=== PATIENT | female | born 1990 | race Caucasian/White ===

== ENCOUNTER 2020-11-21 16:41 | Emergency (ER) | payer OTHER, SELFPAY ==
[2020-11-21] VITALS (7 sets, daily range): BP systolic 125; BP diastolic 61; PULSE 62–75; RESP 12–33; TEMP 36.8; O2SAT 93–100
[2020-11-21] MEDS: EPINEPHrine HCL INJ 1 MG/ML AMPUL 0.3 MG IM (17:37)
[2020-11-21] MEDS: predniSONE 20 MG TABLET 60 MG PO (17:38)
--- NOTE | 2020-11-21 18:05 | ED.ALLEREA ---
HPI - Allergic Reaction General Chief complaint: Allergic Reaction Stated complaint: All React Time Seen by Provider: 11/21/20 16:57 Source: patient, EMS and RN notes reviewed Mode of arrival: EMS Limitations: no limitations History of Present Illness HPI narrative: Patient is 30 years old white female got stung by a wasp to the right wrist, developed swelling lips and tongue and unusual feeling in the throat, received 50 mg of Benadryl prior to arrival, currently feeling much better. Patient denies any shortness of breath. Related Data Allergies Allergy/AdvReac Type Severity Reaction Status Date / Time lavender (Lavandula Allergy Anaphylaxis Verified 11/21/20 17:00 angustifolia) peanut Allergy Anaphylaxis Verified 11/21/20 17:00 Penicillins Allergy Swelling Verified 11/21/20 17:00 pickles Allergy Swelling Uncoded 11/21/20 17:00 of Lip/Tongue/Throat wasps Allergy Swelling Uncoded 11/21/20 17:00 of Lip/Tongue/Throat Review of Systems Review of Systems: CONSTITUTIONAL: Denies fever, chills, or sweats. EYES: Denies visual changes, redness, or discharge. ENT: Denies rhinorrhea, congestion, sore throat, or otalgia. CARDIOVASCULAR: Denies chest pain, palpitations, or edema. RESPIRATORY: Denies cough or dyspnea. GASTROINTESTINAL: Denies abdominal pain, nausea, vomiting, or diarrhea. GENITOURINARY: Denies dysuria or hematuria. SKIN: Denies rash or itching. MUSCULOSKELETAL: Denies back pain, joint pain, or myalgia. NEUROLOGIC: Denies headache, numbness, or weakness. PSYCHIATRIC: Denies anxiety or depression. Exam Narrative: General appearance: Well-developed, well-nourished Skin: Normal color, local redness and swelling at the palmar side of the right wrist. Head: Normocephalic, nontraumatic Eyes: Clear conjunctiva ENT: Oropharynx normal, ears normal, nose normal Neck: Supple, nontender Chest and respiratory: Airway patent, no respiratory distress, no accessory muscle use Heart: Regular rate/rhythm Neurologic: Alert and oriented ?3, [employer] is normal as tested, no gross motor deficit Course Course Emergency Course: Improving Vital Signs Vital signs: Vital Signs Temperature 36.8 C 11/21/20 16:54 Pulse Rate 64 11/21/20 16:54 Respiratory Rate 16 11/21/20 16:54 Blood Pressure 125/61 11/21/20 16:54 Pulse Oximetry 99 11/21/20 16:54 Temperature 36.8 C 11/21/20 16:54 Pulse Rate 64 11/21/20 16:54 Respiratory Rate 16 11/21/20 16:54 Blood Pressure 125/61 11/21/20 16:54 Pulse Oximetry 99 11/21/20 16:54 MDM - Allergic Reaction MDM Narrative Medical decision making narrative: allergic reaction Patient received 50 mg of Benadryl IV, prednisone 60 mg and epinephrine 0.3 mg IM ordered Critical Care Time Critical Care Time Critical Care Time: No Discharge Plan Discharge Clinical Impression: Allergic reaction, Sting, wasp Patient Disposition: Home, Self-Care Condition: Improved Instructions: Antibiotic Form, Insect Bite or Sting (ED), Allergies (ED) Additional Instructions: Return if symptoms are worsening , call your family physician for appointment, take Tylenol as as needed for aches and pain, continue home medications. Prescriptions: New prednisone 20 mg tablet 40 mg PO DAILY 5 Days Qty: 10 RF: 0 Zyrtec 10 mg capsule 10 mg PO DAILY PRN (Reason: allergy symptoms) Qty: 10 RF: 0 Follow-up/Referrals: PHYSICIAN,COMMERCIAL [employer] SERVICE TECHNICIAN [Primary Care Provider] -
== END 2020-11-21 19:30 | disposition home or self-care (01) ==
PROVIDERS: Emergency Provider Emergency Medicine
DX: T63.461A Toxic effect of venom of wasps, accidental (unintentional), initial encounter (principal); R22.0 Localized swelling, mass and lump, head
CPT/HCPCS: 99283; J0171; J7512

== ENCOUNTER 2020-12-23 16:48 | Observation (INO) | payer OTHER, SELFPAY ==
--- NOTE | ~2020-12-23 | CT_ITS ---
EXAMINATION: CT abdomen pelvis w con DATE: 12/23/2020 23:09 INDICATION: Abdominal pain, nausea, vomiting and diarrhea suggested TECHNIQUE: Computed tomography (CT) of the abdomen and pelvis was performed with 100 cc Omnipaque 350 intravenous contrast. Automated exposure control and iterative reconstruction technique were employe d. Exam dose: 1264.94 mGy-cm total exam DLP. COMPARISON: None. FINDINGS: The lung bases are clear of infiltrate or consolidation. Normal heart size. No pericardial or pleural effusion. Status post cholecystectomy. The liver, bile ducts, spleen, pancreas, pancreatic duct, and adrenal glands and kidneys appear chantel l. No urinary tract calculus or hydroureteronephrosis. The urinary bladder is unremarkable. 3.7 cm left ovarian cyst. There is mild free fluid in the dependent lower abdomen and pelvis including right adnexal area. Very small sliding hiatal hernia. Normal appendix.. Normal caliber of the abdominal aorta no intraperitoneal or retroperitoneal or pelvic mass lesion or adenopathy or ascites is detected. There are numerous air-fluid levels of the small bowel, including jejunum as well as ileum. There is prominent continuous lengthy segmental thickening and enhancement of the wall of the ileum including particularly the distal and terminal ileum, which measures up to 3.4 cm diameter. Differential diagno sis includes Crohn's disease, tuberculosis or other infection. IMPRESSION: Continuous lengthy segmental thickening and enhancement of the wall of the ileum and dil atation of the distal and terminal ileum up to 3.4 cm, with multiple proximal small bowel air-fluid l evels. Mild free fluid in the lower abdomen and pelvis. Differential diagnosis includes Crohn's disea se, tuberculosis or other infection 3.7 cm left ovarian cyst Status post cholecystectomy Reviewed, dictated and finalized at [facility] Reviewed, dictated and finalized at [facility]. IMPRESSION: Continuous lengthy segmental thickening and enhancement of the wal l of the ileum and dilatation of the distal and terminal ileum up to 3.4 cm, wi th multiple proximal small bowel air-fluid levels. Mild free fluid in the lower abdomen and pelvis. Differential diagnosis includes Crohn's disease, tuberculo sis or other infection 3.7 cm left ovarian cyst Status post cholecystectomy
[2020-12-23 17:36] VITALS: BP 141/76; PULSE 84; RESP 22; TEMP 36.4; O2SAT 99
[2020-12-23 17:57] LABS: Basophils Percent Auto 0.5 % (0.2-1.2); Eosinophils Absolute Auto 0.2 K/mm3 (0-0.3); Eosinophils Percent Auto 1.7 % (0-4.4); Hematocrit 42.5 % (37.0-47.0); Hemoglobin 13.9 g/dL (12.0-15.0); Immature Granulocyte Absolute 0.04 K/mm3 (0.00-0.031); Immature Granulocyte Percent A 0.5 % (0-0.5); Lymphocytes Absolute Auto 1.25 K/mm3 (0.9-3.2); Lymphocytes Percent Auto 14.5 % (18.3-44.2); Mean Corpuscular HGB Conc 32.7 g/dl (32-36); Mean Corpuscular Hemoglobin 26.8 pg (26-34); Mean Platelet Volume 10.3 fl (7.4-10.4); Monocytes Absolute Auto 0.5 K/mm3 (0.1-0.6); Neutrophils Absolute Auto 6.6 K/mm3 (1.3-6.7); Neutrophils Percent Auto 76.8 % (45.5-73.1); Platelet Count Result 278 k/mm3 (150-375); Red Blood Count 5.18 M/mm3 (4.2-5.4); Red Cell Distribution Width 14.1 % (11.5-14.5); White Blood Count 8.6 K/mm3 (4.5-10.0)
[2020-12-23 18:06] LABS: Alanine Aminotransferase 22 U/L (4-35); Alkaline Phosphatase 84 U/L (38-126); Anion Gap 9 mmol/L (8-16); Aspartate Amino Transferase 23 U/L (14-36); Bilirubin,Total 0.5 mg/dL (0.2-1.3); Blood Urea Nitrogen 8 mg/dL (7-17); Calcium 8.9 mg/dL (8.4-10.2); Carbon Dioxide 26 mmol/L (22-30); Chloride 105 mmol/L (98-107); Estimated CRCL calculation 144 ml/min; Estimated Glomerular Filt Rate > 60; Glucose 98 mg/dL (65-110); Lipase 48 U/L (23-300); Potassium 3.9 mmol/L (3.4-5.0); Sodium 140 mmol/L (137-145)
[2020-12-23 18:42] LABS: Add Urine Microscopic? NO; Appearance Urine Clear (Clear); Bilirubin Urine Negative (Negative); Blood Urine Negative (Negative); Color Urine Yellow (Yellow); Glucose Urine UA Negative (Negative); Ketones Urine Negative (Negative); Leukocyte Esterase Ur Negative LEU/UL (Negative); Nitrate Urine Negative (Negative); Protein Urine Negative (Negative); Urobilinogen Urine Negative mg/dL (<2.0)
[2020-12-23 21:25] VITALS: BP 120/76; PULSE 70; RESP 18; O2SAT 99
--- NOTE | 2020-12-23 22:15 | ED.GENADULT ---
HPI - General Adult General Chief complaint: Abdominal Pain Stated complaint: abd pain Time Seen by Provider: 12/23/20 21:41 History of Present Illness HPI narrative: Patient 30-year-old female presents the emergency department with chief complaint of right upper quadrant pain patient pain began last night and reports that it radiates to her back. Patient states that she has had nausea and has had vomiting and is currently having dry heaves. Patient denies fever denies diarrhea reports that she has prior history of a cholecystectomy reports that the symptoms are not improved by anything nor they worsened by anything. Related Data Allergies Allergy/AdvReac Type Severity Reaction Status Date / Time lavender (Lavandula Allergy Anaphylaxis Verified 11/21/20 17:00 angustifolia) peanut Allergy Anaphylaxis Verified 11/21/20 17:00 Penicillins Allergy Swelling Verified 11/21/20 17:00 pickles Allergy Swelling Uncoded 11/21/20 17:00 of Lip/Tongue/Throat wasps Allergy Swelling Uncoded 11/21/20 17:00 of Lip/Tongue/Throat Review of Systems Review of Systems: A 10 system review of systems was completed on the patient and is negative except for what is stated in the HPI. Nursing and ancillary documentation was reviewed. Exam Narrative: GENERAL: Well-appearing, well-nourished, and in no acute distress. HEAD: Normocephalic, atraumatic. EYES: PERRLA and EOMI. ENT: Nares clear, no rhinorrhea or epistaxis. Mucous membranes moist. NECK: Supple. CHEST: Clear to auscultation. No respiratory distress. HEART: Regular rate and rhythm. No murmur heard. Normal peripheral pulses. ABDOMEN: Soft, tenderness to palpation in the epigastric region, nondistended, normal active bowel sounds. EXTREMITIES: Normal range of motion. No edema. SKIN: Warm, dry, no rash. NEURO: No focal deficits. Alert and oriented x3. PSYCH: Normal mood and affect. Course Vital Signs Vital signs: Vital Signs Temperature 36.4 C L 12/23/20 17:36 Pulse Rate 84 12/23/20 17:36 Respiratory Rate 22 H 12/23/20 17:36 Blood Pressure 141/76 H 12/23/20 17:36 Pulse Oximetry 99 12/23/20 17:36 Temperature 36.4 C L 12/23/20 17:36 Pulse Rate 70 12/23/20 21:25 Respiratory Rate 18 12/23/20 21:25 Blood Pressure 120/76 12/23/20 21:25 Pulse Oximetry 99 12/23/20 21:25 Medical Decision Making Vital Signs Vital Signs: Vital Signs Temperature 36.4 C L 12/23/20 17:36 Pulse Rate 84 12/23/20 17:36 Respiratory Rate 22 H 12/23/20 17:36 Blood Pressure 141/76 H 12/23/20 17:36 Pulse Oximetry 99 12/23/20 17:36 Temperature 36.4 C L 12/23/20 17:36 Pulse Rate 70 12/23/20 21:25 Respiratory Rate 18 12/23/20 21:25 Blood Pressure 120/76 12/23/20 21:25 Pulse Oximetry 99 12/23/20 21:25 Lab Data Result diagrams: 12/23/20 17:48 12/23/20 17:48 Labs: Lab Results 12/23/20 12/23/20 12/23/20 Range/Units 17:48 17:48 18:26 WBC 8.6 (4.5-10.0) K/mm3 RBC 5.18 (4.2-5.4) M/mm3 Hgb 13.9 (12.0-15.0) g/dL Hct 42.5 (37.0-47.0) % MCV 82.0 (80-100) fl MCH 26.8 (26-34) pg MCHC 32.7 (32-36) g/dl RDW 14.1 (11.5-14.5) % Plt Count 278 (150-375) k/mm3 MPV 10.3 (7.4-10.4) fl Immature Gran % (Auto) 0.5 (0-0.5) % Neut % (Auto) 76.8 H (45.5-73.1) % Lymph % (Auto) 14.5 L (18.3-44.2) % [place] % (Auto) 6.0 (2.6-8.5) % Eos % (Auto) 1.7 (0-4.4) % Baso % (Auto) 0.5 (0.2-1.2) % Lymph # (Auto) 1.25 (0.9-3.2) K/mm3 [place] # (Auto) 0.5 (0.1-0.6) K/mm3 Eos # (Auto) 0.2 (0-0.3) K/mm3 Baso # (Auto) 0.0 (0.0-0.1) K/mm3 Abs Immat Gran (auto) 0.04 H (0.00-0.031) K/mm3 Absolute Neuts (auto) 6.6 (1.3-6.7) K/mm3 Absolute Nucleated RBC 0.0 (0.0-0.012) K/mm3 Nucleated RBC % 0.0 (0.0-0.2) % Sodium 140 (137-145) mmol/L Potassium 3.9 (3.4-5.0) mmol/L Chloride 105 (98-107) mmol/L Carbon
[2020-12-23] MEDS: ONDANSETRON INJ 4 MG/2 ML VIAL IV PUSH (22:47)
[2020-12-23] MEDS: PANTOPRAZOLE SODIUM IV 40 MG VIAL IV PUSH (22:47)
[2020-12-23] MEDS: MORPHINE SULFATE (*CRX) 4 MG/ML INJ IV PUSH (22:47)
[2020-12-23] MEDS: SODIUM CHLORIDE 0.9% IV 1,000 ML 999 ML IV CONT (22:52)
[2020-12-24] VITALS (8 sets, daily range): BP systolic 99–139; BP diastolic 49–69; PULSE 70–77; RESP 16–20; TEMP 36.1–37; O2SAT 98–100; BMI 39.1
--- NOTE | 2020-12-24 01:41 | ADMGEN ---
This patient, Jaylyn Gale, was admitted to 2 Medical Room 261-01. Patient/family oriented to hospital policies and general routines including ID bracelet, bed and alarms, visiting hours, pain management, procedures, bathroom and other care routines, personal items, smoking policy, room service/diet, and visiting hours. Information on how to activate the Rapid Response Team has been discussed. Patient/Family are encouraged to report perceived risks to care and to ask questions if they do not understand what they are told or what they should do.
[2020-12-24] MEDS: SODIUM CHLORIDE 0.9% IV 1,000 ML 125 ML IV CONT ×3 (02:12→23:41)
[2020-12-24] MEDS: metroNIDAZOLE 500 MG/ISO 100ML 500 MG/100 ML BAG 100 MG IVPB ×5 (02:13→23:41)
[2020-12-24] MEDS: ONDANSETRON INJ 4 MG/2 ML VIAL IV PUSH ×5 (02:55→21:17)
[2020-12-24] MEDS: MORPHINE SULFATE (*CRX) 2 MG/ML INJ 1 MG IV PUSH (05:39)
--- NOTE | 2020-12-24 08:01 | PM.IMHP ---
H&P: HPI History of Present Illness Date/Time: 12/24/20 08:01 Chief Complaint: Abdominal pain, nausea, vomiting Narrative: Patient is a 30-year-old female, presenting with an episode of crampy abdominal pain and nausea and vomiting. She has had these episodes at various points over the last 10 years, she begins to feel severe abdominal pain that is described as stabbing or pinching, associated with some nausea, and watery emesis. There is no significant constipation or diarrhea. There are no hematochezia or melena. There are no fever or chills. About 5 years ago, she was told that she may have Crohn's disease based on CT findings. However earlier this year at another facility, she underwent a colonoscopy, after which she was told that she does not have Crohn's disease. Nothing makes the pain better or worse. It is not related to food or exertion. Past medical history: No significant chronic medical problems Allergies: As documented, penicillin causes anaphylaxis, she also has allergies to Lavender and wasps Medications: None daily Family history: Not aware of any major medical problems running in her family Social history: Denies any significant drug or alcohol use other than marijuana; no cigarettes Surgeries: Laparoscopic cholecystectomy about 2011, and 2 vaginal births ER course: Vital signs: Afebrile, hemodynamically stable, no tachypnea Labs: No leukocytosis, no anemia, no kidney injury, no significant electrolyte abnormalities Urinalysis: No urinary tract infection evidence, negative test CT the abdomen and pelvis showing no calculus in the urinary tract, and a normal liver, spleen, pancreas, biliary system, and kidneys; they did identify a 3.7 cm left ovarian cyst, a small sliding hiatal hernia, lengthy segmental thickening of the ileum, consistent with some sort of inflammatory process Review of Systems Review of Systems: All systems reviewed & are unremarkable except as noted in HPI and below [facility] Family History Family History (Updated 12/24/20 @ 01:58 by Loraine Figueroa RN) Father Diabetes mellitus Grandparent Cancer Social History Social History Smoking status: Never smoker Alcohol intake: current Substance use: current Substance use type: marijuana Last use: 12/23/20 Spiritual care concerns: No Meds Home Medications and Allergies Home Medications Medication Instructions Recorded Confirmed Type albuterol sulfate 2 puff INHALATION Q4H PRN 12/24/20 12/24/20 History Allergies Allergy/AdvReac Type Severity Reaction Status Date / Time lavender (Lavandula Allergy Anaphylaxis Verified 11/21/20 17:00 angustifolia) peanut Allergy Anaphylaxis Verified 11/21/20 17:00 Penicillins Allergy Swelling Verified 11/21/20 17:00 pickles Allergy Swelling Uncoded 11/21/20 17:00 of Lip/Tongue/Throat wasps Allergy Swelling Uncoded 11/21/20 17:00 of Lip/Tongue/Throat Vital Signs Vital Signs - 24 hr 12/23/20 17:36 12/23/20 21:25 12/24/20 00:07 Temperature 97.5 F L Pulse Rate 84 70 73 Respiratory Rate 22 H 18 18 Blood Pressure 141/76 H 120/76 105/68 Pulse Oximetry 99 99 99 12/24/20 01:49 12/24/20 04:41 Temperature 98.5 F 98.6 F Pulse Rate 70 77 Respiratory Rate 20 20 Blood Pressure 99/49 L 112/50 L Pulse Oximetry 99 98 Exam Const: General: in distress Neck: Neck: no JVD Resp: Effort & Inspection: normal respiratory effort Auscultation: clear to auscultation bilaterally Cardio: Rate: regular rate Rhythm: regular rhythm GI: GI Palp: Yes Soft to palpation and Yes Tenderness to palpation present (GI) Other: tender to palpation lower abdomen H&P: Results Labs Labs: Short CBC 12/23/20 Range/Units 17:48 WBC 8.6 (4.5-10.0) K/mm3 Hgb 13.9 (12.0-15.0) g/dL Hct 42.5 (37.0-47.0) % Plt Count 278 (150-375) k/mm3 [facility] 12/23/20 17:48 Sod
[2020-12-24] MEDS: ACETAMINOPHEN 325 MG TABLET 650 MG PO (13:28)
--- NOTE | 2020-12-24 15:27 | ECG_ITS ---
Measurements Intervals [place] Rate: 69 P: 64 MO: 161 QRS: 61 QRSD: 101 T: 64 QT: 406 QTc: 438 Interpretive Statements SINUS RHYTHM BORDERLINE T WAVE ABNORMALITY- ANTERIOR LEADS BORDERLINE ECG Electronically Signed On 12-24-2020 16:47:33 CDT by Cortes Canchola D.O.
[2020-12-24 16:41] LABS: CRP 1.4 mg/dL (<1.0)
[2020-12-24 17:45] LABS: Erythrocyte Sedimentation Rate 19 mm/hr (0-20)
[2020-12-24 17:53] LABS: Hepatitis B Surface Antigen Negative (Negative)
[2020-12-24 17:59] LABS: HAV RESULT Negative (Negative); Hepatitis B Core IgM Result Negative (Negative)
[2020-12-24 18:11] LABS: Hepatitis C Virus Antibody Negative (Negative)
[2020-12-24] MEDS: PANTOPRAZOLE 40 MG TABLET PO (19:55)
[2020-12-24] MEDS: HYDROcodone/acetaminophen (*CRX) 5-325 MG TABLET 1 TAB PO (19:58)
[2020-12-25] MEDS: HYDROcodone/acetaminophen (*CRX) 5-325 MG TABLET 1 TAB PO ×3 (05:19→18:51)
[2020-12-25] MEDS: ONDANSETRON INJ 4 MG/2 ML VIAL IV PUSH ×3 (05:19→18:51)
[2020-12-25] MEDS: metroNIDAZOLE 500 MG/ISO 100ML 500 MG/100 ML BAG 100 MG IVPB ×3 (05:22→17:31)
[2020-12-25 05:43] LABS: Basophils Percent Auto 0.4 % (0.2-1.2); Eosinophils Absolute Auto 0.2 K/mm3 (0-0.3); Eosinophils Percent Auto 3.6 % (0-4.4); Hematocrit 35.5 % (37.0-47.0); Hemoglobin 11.6 g/dL (12.0-15.0); Immature Granulocyte Absolute 0.02 K/mm3 (0.00-0.031); Immature Granulocyte Percent A 0.4 % (0-0.5); Lymphocytes Percent Auto 26.3 % (18.3-44.2); Mean Corpuscular HGB Conc 32.7 g/dl (32-36); Mean Corpuscular Hemoglobin 26.5 pg (26-34); Mean Corpuscular Volume 81.2 fl (80-100); Mean Platelet Volume 10.2 fl (7.4-10.4); Monocytes Absolute Auto 0.4 K/mm3 (0.1-0.6); Monocytes Percent Auto 7.7 % (2.6-8.5); Neutrophils Absolute Auto 3.3 K/mm3 (1.3-6.7); Neutrophils Percent Auto 61.6 % (45.5-73.1); Platelet Count Result 225 k/mm3 (150-375); Red Blood Count 4.37 M/mm3 (4.2-5.4); Red Cell Distribution Width 13.9 % (11.5-14.5); White Blood Count 5.3 K/mm3 (4.5-10.0)
[2020-12-25 05:54] VITALS: BP 144/71; PULSE 64; RESP 16; TEMP 36.3; O2SAT 95
[2020-12-25 05:57] LABS: Alanine Aminotransferase 16 U/L (4-35); Albumin Level 3.2 g/dL (3.5-5.1); Alkaline Phosphatase 74 U/L (38-126); Anion Gap 4 mmol/L (8-16); Aspartate Amino Transferase 19 U/L (14-36); Bilirubin,Total 0.4 mg/dL (0.2-1.3); Blood Urea Nitrogen 7 mg/dL (7-17); Calcium 8.4 mg/dL (8.4-10.2); Carbon Dioxide 27 mmol/L (22-30); Chloride 109 mmol/L (98-107); Estimated CRCL calculation 127 ml/min; Estimated Glomerular Filt Rate > 60; Glucose 91 mg/dL (65-110); Phosphorus 3.1 mg/dL (2.5-4.5); Potassium 3.6 mmol/L (3.4-5.0); Sodium 140 mmol/L (137-145)
--- NOTE | 2020-12-25 08:15 | PM.IMPN ---
Progress Note: A&P Assessment and Plan (1) Vomiting: Code(s): R11.10 - Vomiting, unspecified Status: Acute Assessment and Plan: Zofran after QTC on EKG insure that is safe - 438 May be related to pain, may be related to gastritis, may be related to gastroenteritis IV fluid hydration, and clear liquid diet No electrolyte abnormalities or alkalosis at the moment, will trend labs (2) Abdominal pain: Code(s): R10.9 - Unspecified abdominal pain Status: Acute Assessment and Plan: Does not have appendicitis, pancreatitis, biliary disease, significant renal disease, or ectopic . Also does not have hepatitis. ESR normal, mild elevation of crp to 1.4, though nonspecific. She was told 5 years ago that she has Crohn's based on a CT. However of note, a colonoscopy done earlier this year, showed that she did not have Crohn's related changes. Possible explanations at this point include gastritis, we will treat empirically with IV Protonix, and gastroenteritis which we are treating with supportive care. If not resolving, and no etiology identified, may require GI consultation. Additional Plan hepatitis panel negative, esr normal, and crp only slightly elevated 1.4 pain somewhat improving with protonix - s/x maybe related to gastritis continue prn for the moment to be safe, we will also obtain celiac studies GI consult inpt vs d/c & outpt f/up based on symptoms Time Spent With Patient Time with patient: less than 15 minutes Subjective Date/time seen: 12/25/20 08:15 doing well, resting comfortably in bed Review of Systems Review of Systems: All systems reviewed & are unremarkable except as noted in HPI and below Exam Const: General: no acute distress Neck: Neck: no JVD Resp: Effort & Inspection: normal respiratory effort Auscultation: clear to auscultation bilaterally Cardio: Rate: regular rate Rhythm: regular rhythm GI: GI Palp: Yes Soft to palpation and No Tenderness to palpation present (GI) Objective Data Vital Signs Vital Signs: Vital Signs - 24 hr 12/24/20 08:32 12/24/20 10:31 12/24/20 14:00 Temperature 98.4 F Pulse Rate 71 Respiratory Rate 20 18 Blood Pressure 127/69 Pulse Oximetry 98 98 100 12/24/20 20:00 12/24/20 21:26 12/25/20 05:54 Temperature 97.0 F L 97.4 F L Pulse Rate 70 64 Respiratory Rate 16 16 Blood Pressure 139/67 144/71 H Pulse Oximetry 100 100 95 Intake/Output Intake/Output: Intake & Output 12/22/20 12/23/20 12/24/20 12/25/20 23:59 23:59 23:59 23:59 Intake Total 3850 540 Output Total 1800 250 Balance 2050 290 Meds/Results Medications: Active Medications Generic Name Dose Route Start Last Admin Trade Name Freq PRN Reason Stop Dose Admin Acetaminophen 650 mg 12/24/20 12:35 12/24/20 13:28 Acetaminophen 325 Mg Tablet PO 650 mg Q4H PRN Administration Mild Pain (1-3) or Fever Hydrocodone Bitart/Acetaminophen 1 tab 12/24/20 15:33 12/25/20 05:19 Hydrocodone/Acetaminophen (*Crx) 5-325 Mg Tablet PO 1 tab Q4H PRN Administration Pain Rated 4-6 Sodium Chloride 1,000 mls @ 125 mls/hr 12/23/20 23:45 12/25/20 03:52 Normal Saline Iv IV CONT Not Given .Q8H DANIEL Levofloxacin/Dextrose 750 mg in 150 mls @ 100 mls/hr 12/25/20 22:00 Levaquin 750 Mg/D5w 150 Ml IVPB Q24H DANIEL Metronidazole 500 mg in 100 mls @ 100 mls/hr 12/24/20 07:00 12/25/20 06:22 Flagyl 500 Mg/Iso Soln 100 Ml IVPB Infused Q6HR DANIEL Infusion Ondansetron HCl 4 mg 12/23/20 23:59 12/25/20 05:19 Ondansetron Inj 4 Mg/2 Ml Vial IV PUSH 4 mg Q4H PRN Administration Nausea Pantoprazole Sodium 40 mg 12/24/20 21:00 12/24/20 19:55 Pantoprazole 40 Mg Tablet PO 40 mg Q12HR DANIEL Administration Radiology Results: ITS Impressions Abdomen/Pelvis CT 12/23/20 23:27 IMPRESSION: Continuous lengthy segmental thickening and enhancement of the wall of the ileum and dilatation o
[2020-12-25] MEDS: PANTOPRAZOLE 40 MG TABLET PO ×2 (08:43→20:22)
[2020-12-25] MEDS: SODIUM CHLORIDE 0.9% IV 1,000 ML 125 ML IV CONT ×2 (08:45→17:31)
[2020-12-25 14:30] VITALS: BP 116/52; PULSE 66; RESP 16; TEMP 36.4; O2SAT 100
[2020-12-25 16:21] LABS: Beta HCG Quantitative < 2.39 mIU/ML
[2020-12-25] MEDS: ACETAMINOPHEN 325 MG TABLET 650 MG PO (20:20)
[2020-12-25 22:00] VITALS: BP 118/73; PULSE 66; RESP 22; TEMP 36.2; O2SAT 100
[2020-12-26] MEDS: metroNIDAZOLE 500 MG/ISO 100ML 500 MG/100 ML BAG 100 MG IVPB ×2 (00:05→05:19)
[2020-12-26] MEDS: ONDANSETRON INJ 4 MG/2 ML VIAL IV PUSH ×3 (01:41→20:47)
[2020-12-26] MEDS: HYDROcodone/acetaminophen (*CRX) 5-325 MG TABLET 1 TAB PO ×3 (01:42→20:47)
[2020-12-26] MEDS: SODIUM CHLORIDE 0.9% IV 1,000 ML 125 ML IV CONT ×3 (01:44→20:44)
[2020-12-26 05:33] LABS: Basophils Percent Auto 0.3 % (0.2-1.2); Eosinophils Absolute Auto 0.1 K/mm3 (0-0.3); Eosinophils Percent Auto 0.8 % (0-4.4); Hematocrit 35.7 % (37.0-47.0); Hemoglobin 11.6 g/dL (12.0-15.0); Immature Granulocyte Absolute 0.01 K/mm3 (0.00-0.031); Immature Granulocyte Percent A 0.2 % (0-0.5); Lymphocytes Absolute Auto 0.99 K/mm3 (0.9-3.2); Lymphocytes Percent Auto 16.2 % (18.3-44.2); Mean Corpuscular HGB Conc 32.5 g/dl (32-36); Mean Corpuscular Hemoglobin 26.9 pg (26-34); Mean Corpuscular Volume 82.8 fl (80-100); Mean Platelet Volume 10.5 fl (7.4-10.4); Monocytes Absolute Auto 0.4 K/mm3 (0.1-0.6); Monocytes Percent Auto 6.2 % (2.6-8.5); Neutrophils Absolute Auto 4.7 K/mm3 (1.3-6.7); Neutrophils Percent Auto 76.3 % (45.5-73.1); Platelet Count Result 221 k/mm3 (150-375); Red Blood Count 4.31 M/mm3 (4.2-5.4); Red Cell Distribution Width 13.8 % (11.5-14.5); White Blood Count 6.1 K/mm3 (4.5-10.0)
[2020-12-26 05:53] LABS: Alanine Aminotransferase 15 U/L (4-35); Albumin Level 3.4 g/dL (3.5-5.1); Alkaline Phosphatase 69 U/L (38-126); Anion Gap 8 mmol/L (8-16); Aspartate Amino Transferase 19 U/L (14-36); Bilirubin,Total 0.2 mg/dL (0.2-1.3); Blood Urea Nitrogen 7 mg/dL (7-17); Calcium 8.1 mg/dL (8.4-10.2); Carbon Dioxide 24 mmol/L (22-30); Chloride 108 mmol/L (98-107); Estimated CRCL calculation 146 ml/min; Estimated Glomerular Filt Rate > 60; Glucose 93 mg/dL (65-110); Magnesium 1.9 mg/dL (1.6-2.3); Phosphorus 3.2 mg/dL (2.5-4.5); Potassium 3.7 mmol/L (3.4-5.0); Sodium 140 mmol/L (137-145)
[2020-12-26 06:00] VITALS: BP 119/58; PULSE 73; RESP 16; TEMP 36; O2SAT 99
--- NOTE | 2020-12-26 08:04 | PM.IMPN ---
Progress Note: A&P Assessment and Plan (1) Vomiting: Code(s): R11.10 - Vomiting, unspecified Status: Acute Assessment and Plan: Zofran after QTC on EKG insure that is safe - 438 May be related to pain, may be related to gastritis, may be related to gastroenteritis IV fluid hydration, and clear liquid diet No electrolyte abnormalities or alkalosis at the moment, will trend labs (2) Abdominal pain: Code(s): R10.9 - Unspecified abdominal pain Status: Acute Assessment and Plan: Does not have appendicitis, pancreatitis, biliary disease, significant renal disease, or ectopic . Also does not have hepatitis. ESR normal, mild elevation of crp to 1.4, though nonspecific. She was told 5 years ago that she has Crohn's based on a CT. However of note, a colonoscopy done earlier this year, showed that she did not have Crohn's related changes. Possible explanations at this point include gastritis, we will treat empirically with IV Protonix, and gastroenteritis which we are treating with supportive care. If not resolving, and no etiology identified, may require GI consultation. Additional Plan Few days of abdominal pain, nausea, and watery emesis r/o pancreatitis, biliary disease, appendicitis, hepatitis, ectopic or renal disease, pending Celiac w/up. Some concern for Crohn's based on CT, however ESR normal & CRP only 1.4 - which is lower than would be expected with Crohn's. Furthermore, pt has had colonoscopy after which she was told she does not have Crohn's Remaining possibilites include gastritis, gastroenteritis, IBS. Supportive care for these right now. Discharge later today or tomorrow morning based on symptom resolution Time Spent With Patient Time with patient: less than 15 minutes Subjective Date/time seen: 12/26/20 08:04 gi symptoms improving Review of Systems Review of Systems: All systems reviewed & are unremarkable except as noted in HPI and below Exam Const: General: no acute distress Neck: Neck: no JVD Resp: Effort & Inspection: normal respiratory effort Auscultation: clear to auscultation bilaterally Cardio: Rate: regular rate Rhythm: regular rhythm GI: GI Palp: Yes Soft to palpation and No Tenderness to palpation present (GI) Objective Data Vital Signs Vital Signs: Vital Signs - 24 hr 12/25/20 14:30 12/25/20 22:00 12/26/20 06:00 Temperature 97.6 F 97.1 F L 96.8 F L Pulse Rate 66 66 73 Respiratory Rate 16 22 H 16 Blood Pressure 116/52 L 118/73 119/58 L Pulse Oximetry 100 100 99 Intake/Output Intake/Output: Intake & Output 12/23/20 12/24/20 12/25/20 12/26/20 23:59 23:59 23:59 23:59 Intake Total 3850 3450 1250 Output Total 1800 1450 Balance 2049 1999 1250 Meds/Results Medications: Active Medications Generic Name Dose Route Start Last Admin Trade Name Freq PRN Reason Stop Dose Admin Acetaminophen 650 mg 12/24/20 12:35 12/25/20 20:20 Acetaminophen 325 Mg Tablet PO 650 mg Q4H PRN Administration Mild Pain (1-3) or Fever Hydrocodone Bitart/Acetaminophen 1 tab 12/24/20 15:33 12/26/20 05:56 Hydrocodone/Acetaminophen (*Crx) 5-325 Mg Tablet PO 1 tab Q4H PRN Administration Pain Rated 4-6 Sodium Chloride 1,000 mls @ 125 mls/hr 12/23/20 23:45 12/26/20 01:44 Normal Saline Iv IV CONT 125 mls/hr .Q8H DANIEL Administration Levofloxacin/Dextrose 750 mg in 150 mls @ 100 mls/hr 12/25/20 22:00 12/25/20 21:57 Levaquin 750 Mg/D5w 150 Ml IVPB Infused Q24H DANIEL Infusion Metronidazole 500 mg in 100 mls @ 100 mls/hr 12/24/20 07:00 12/26/20 06:19 Flagyl 500 Mg/Iso Soln 100 Ml IVPB Infused Q6HR DANIEL Infusion Ondansetron HCl 4 mg 12/23/20 23:59 12/26/20 05:56 Ondansetron Inj 4 Mg/2 Ml Vial IV PUSH 4 mg Q4H PRN Administration Nausea Pantoprazole Sodium 40 mg 12/24/20 21:00 12/25/20 20:22 Pantoprazole 40 Mg Tablet PO 40 mg Q12HR DANIEL Administration Rad
[2020-12-26] MEDS: PANTOPRAZOLE 40 MG TABLET PO ×2 (09:09→20:45)
[2020-12-26 14:50] VITALS: BP 106/64; PULSE 62; RESP 16; TEMP 36.6; O2SAT 100
[2020-12-26 20:00] VITALS: PULSE 62; RESP 16; O2SAT 100
[2020-12-26 22:00] VITALS: BP 124/66; PULSE 63; RESP 16; TEMP 36.9; O2SAT 100
[2020-12-27] MEDS: SODIUM CHLORIDE 0.9% IV 1,000 ML 125 ML IV CONT (05:27)
[2020-12-27] MEDS: HYDROcodone/acetaminophen (*CRX) 5-325 MG TABLET 1 TAB PO (05:27)
[2020-12-27 06:00] VITALS: BP 125/56; PULSE 58; RESP 16; TEMP 36.1; O2SAT 98
[2020-12-27 06:03] LABS: Basophils Percent Auto 0.3 % (0.2-1.2); Eosinophils Absolute Auto 0.1 K/mm3 (0-0.3); Eosinophils Percent Auto 1.6 % (0-4.4); Hematocrit 38.2 % (37.0-47.0); Hemoglobin 12.4 g/dL (12.0-15.0); Immature Granulocyte Absolute 0.02 K/mm3 (0.00-0.031); Immature Granulocyte Percent A 0.3 % (0-0.5); Lymphocytes Absolute Auto 1.59 K/mm3 (0.9-3.2); Lymphocytes Percent Auto 23.1 % (18.3-44.2); Mean Corpuscular HGB Conc 32.5 g/dl (32-36); Mean Platelet Volume 10.2 fl (7.4-10.4); Monocytes Absolute Auto 0.5 K/mm3 (0.1-0.6); Monocytes Percent Auto 6.8 % (2.6-8.5); Neutrophils Absolute Auto 4.7 K/mm3 (1.3-6.7); Neutrophils Percent Auto 67.9 % (45.5-73.1); Platelet Count Result 241 k/mm3 (150-375); White Blood Count 6.9 K/mm3 (4.5-10.0)
[2020-12-27 06:12] LABS: Alanine Aminotransferase 20 U/L (4-35); Albumin Level 3.8 g/dL (3.5-5.1); Alkaline Phosphatase 75 U/L (38-126); Anion Gap 6 mmol/L (8-16); Aspartate Amino Transferase 28 U/L (14-36); Bilirubin,Total 0.2 mg/dL (0.2-1.3); Blood Urea Nitrogen 6 mg/dL (7-17); Calcium 8.5 mg/dL (8.4-10.2); Carbon Dioxide 26 mmol/L (22-30); Chloride 107 mmol/L (98-107); Estimated CRCL calculation 127 ml/min; Estimated Glomerular Filt Rate > 60; Glucose 88 mg/dL (65-110); Magnesium 1.8 mg/dL (1.6-2.3); Phosphorus 3.1 mg/dL (2.5-4.5); Potassium 3.1 mmol/L (3.4-5.0); Sodium 139 mmol/L (137-145)
[2020-12-27] MEDS: PANTOPRAZOLE 40 MG TABLET PO (08:07)
--- NOTE | 2020-12-27 09:27 | PC.NURSE ---
Patient requested to leave AMA. AGAINST MEDICAL ADVICE form filled out. Patient is alert and able to make her own decisions. Hospitalist made aware of patient request.
--- NOTE | 2020-12-27 09:33 | PM.EVENT ---
Event Note Event Note Event Note: RN called to tell me that the patient wanted to leave against medical advise. I was not on the floor but I called her phone and she told me she could not wait another second and she was walking out the door. I explained to her that I could probably discharge her if she would just wait in the room so I could see her but she told me that she has to leave or her may lose his job . I did recommend her following up with GI based on CT findings and I verbally gave her Dr. Costello phone number. She was educated about the signs and symptoms come back to emergency room for. She again understands the repercussions of leaving against medical advise and has signed the paper to do so.
[2020-12-31 23:43] LABS: Tissue Transglutaminase IgA Ab <1.0 U/mL (<15.0)
== END 2020-12-27 09:35 | disposition left against medical advice (07) ==
LOC: ANHED 21:41 → ANH2MED 12-24 00:42
PROVIDERS: Emergency Medicine; Internal Medicine; Admitting Provider Internal Medicine; Emergency Provider Emergency Medicine; Visit Provider Internal Medicine
DX: R10.11 Right upper quadrant pain (principal); R11.10 Vomiting, unspecified; N83.202 Unspecified ovarian cyst, left side; K44.9 Diaphragmatic hernia without obstruction or gangrene; Z90.49 Acquired absence of other specified parts of digestive tract
CPT/HCPCS: 36415; 74177; 80053; 80074; 81003; 81025; 83516; 83690; 83735; 84100; 84702; 85025; 85652; 86140; 93005; 96360; 96361; 96365; 96366; 96367; 96374; 96375; 96376; 99285; A9270; C9113; G0378; G0379; J1956; J2270; J2405; J7030; Q9967

== ENCOUNTER 2022-02-20 15:54 | Emergency (ER) | payer OTHER, SELFPAY ==
[2022-02-20 16:02] VITALS: BP 107/65; PULSE 73; RESP 16; TEMP 36.7; O2SAT 100
--- NOTE | 2022-02-20 16:29 | ED.GENADULT ---
HPI - General Adult General Chief complaint: Nausea/Vomiting/Diarrhea Stated complaint: Nausea,Dizzy Time Seen by Provider: 02/20/22 16:40 Source: patient and RN notes reviewed Mode of arrival: ambulatory Limitations: no limitations History of Present Illness HPI narrative: 31-year-old female presents to concern for 2 day history of nausea, vomiting, dizziness, chills, body aches, sweats, headache. She denies constipation or diarrhea. She reports some abdominal cramping. She reports she took ibuprofen for her symptoms. She denies known sick contacts. 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 She reports her last menstrual period ended 2 days ago, she had 2 small irregular periods this month. MD complaint: Nausea vomiting Related Data Allergies Allergy/AdvReac Type Severity Reaction Status Date / Time lavender (Lavandula Allergy Anaphylaxis Verified 11/21/20 17:00 angustifolia) peanut Allergy Anaphylaxis Verified 11/21/20 17:00 Penicillins Allergy Swelling Verified 11/21/20 17:00 pickles Allergy Swelling Uncoded 11/21/20 17:00 of Lip/Tongue/Throat wasps Allergy Swelling Uncoded 11/21/20 17:00 of Lip/Tongue/Throat Review of Systems Review of Systems: CONSTITUTIONAL: Reports malaise, chills, sweats ENT: Denies rhinorrhea, congestion, sinus pain, otalgia or sore throat. CARDIOVASCULAR: Denies chest pain, palpitations, or edema. RESPIRATORY: Denies cough or dyspnea. GASTROINTESTINAL: Denies abdominal pain, diarrhea, bloody, or mucous stools. Reports nausea and vomiting GENITOURINARY: Denies dysuria or hematuria. Reports urine frequency MUSCULOSKELETAL: Reports myalgia. NEUROLOGIC: Reports headache. All systems reviewed & are unremarkable except as noted in HPI and below [facility] Family History Family History (Updated 12/24/20 @ 01:58 by Loraine Figueroa RN) Father Diabetes mellitus Grandparent Cancer Social History Social History Smoking status: Never smoker Alcohol intake: current Substance use: current Substance use type: marijuana Last use: 12/23/20 Spiritual care concerns: No Comments At time of signature, agree with nursing past medical, surgical, social and family history. There is no relevant family history pertinent to the presenting complaint Exam Narrative: GENERAL: Well-appearing, well-nourished, and in no acute distress. HEAD: Normocephalic, atraumatic. EYES: PERRLA, conjunctivae clear, and EOMI. ENT: Nares clear, turbinates pink, no rhinorrhea or epistaxis. Mucous membranes moist. Oropharynx without edema, erythema, or lesions. Tonsils not enlarged and without exudate. NECK: Supple. No lymphadenopathy CHEST: Speaks in full sentences. No respiratory distress. HEART: Regular rate and rhythm. ABDOMEN: Soft, obese, nondistended. Mild right lower quadrant tenderness. No guarding, rebound tenderness, or rigidity. No pulsatile masses. Bowel sounds present in all four quadrants. No organomegaly. Negative Mcmanus?s sign. No periumbilical tenderness. No Supra public tenderness or distension. Good femoral pulses bilaterally. No hernia noted. No scars or surface trauma. SKIN: Warm, dry, no rash. NEURO: Alert and oriented x3. PSYCH: Normal mood and affect Course Course Emergency Course: Discussed limited diagnostic capability at [facility] for abdominal pain. Offer patient transferred to emergency department for further evaluation, patient declines transfer to emergency department at this time. Given patient reasons to return to emergency room if symptoms progress or worsen. Patient is aware of diagnosis, understands and agrees to treatment plan. Anticipatory guidance given. Patient agrees to follow-up as directed and is aware of reasons to seek care at the emergency department. Portions of this record may have been created with voice recognition software Level of Care: [facility] Visit Vital Signs Vi
== END 2022-02-20 17:06 | disposition home or self-care (01) ==
PROVIDERS: Emergency Provider Nurse Practitioner
DX: R11.2 Nausea with vomiting, unspecified (principal)
CPT/HCPCS: 81003; 81025; 99213; G0463